=== PATIENT | female | born 1970 | race African-American/Black ===

== ENCOUNTER 2022-11-07 04:17 | Day surgery (SDC) | payer BC ==
[2022-10-30 14:51] VITALS: BMI 27.6
[2022-11-07] MEDS ORDERED: FENTANYL CITRATE/PF 50 MCG/ML VIAL ONE ×2 (07:25→08:02)
[2022-11-07] MEDS ORDERED: MIDAZOLAM HCL 2 MG/2 ML SINGLE DOSE VIAL ONE (07:25)
[2022-11-07] MEDS ORDERED: ONDANSETRON 4 MG/2 ML VIAL IVPUSH PRN ×2 (07:40→08:38)
[2022-11-07] MEDS ORDERED: IBUPROFEN 800 MG/8 ML IJ IVPB PRN (07:40)
[2022-11-07] MEDS ORDERED: IBUPROFEN 600 MG TABLET (FP) PO PRN (07:40)
[2022-11-07] MEDS ORDERED: oxyCODONE HCL 5 MG TABLET PO PRN ×2 (07:40→08:38)
[2022-11-07] MEDS ORDERED: PROPOFOL 20 ML ONE ×2 (07:41→07:43)
[2022-11-07] MEDS ORDERED: SUCCINYLCHOLINE CHLORIDE 200 MG/10 ML SYRINGE ONE (07:42)
[2022-11-07] MEDS ORDERED: KETOROLAC TROMETHAMINE 30 MG/1 ML VIAL ONE (07:42)
[2022-11-07] MEDS ORDERED: LIDOCAINE HCL/PF 2% SDV 5ML VIAL ONE (07:42)
[2022-11-07] MEDS ORDERED: ELECTROLYTE-148 SOLN 1,000 ML IV SCH (07:45)
[2022-11-07] MEDS ORDERED: FENTANYL CITRATE/PF 50 MCG/ML VIAL IVPUSH PRN (08:38)
[2022-11-07] MEDS ORDERED: ACETAMINOPHEN 1000 MG/100 ML BAG IVPB ONE (08:40)
[2022-11-07] MEDS ORDERED: LACTATED RINGERS SOLUTION 1,000 ML IV SCH (08:45)
[2022-11-07 13:37] VITALS: RESP 20; TEMP 97.7
[2022-11-07 13:41] VITALS: BP 121/73; PULSE 71
== END 2022-11-07 10:15 | disposition home or self-care (01) ==
LOC: JASU-SURG 04:17
PROVIDERS: ATTEND Obstetrics & Gynecology
PROC: 0UDB8ZX Extraction of Endometrium, Via Natural or Artificial Opening Endoscopic, Diagnostic (ICD-10-PCS; 2022-11-07)
PROC: 0UB98ZX Excision of Uterus, Via Natural or Artificial Opening Endoscopic, Diagnostic (ICD-10-PCS; principal; 2022-11-07 07:30)
DX: N84.0 Polyp of corpus uteri (principal); N92.1 Excessive and frequent menstruation with irregular cycle
CPT/HCPCS: 81025; 82962; 88305-TC; 94760